=== PATIENT | female | born 1990 | race African-American/Black ===

== ENCOUNTER 2016-10-23 22:47 | Emergency (ER) | payer OTHER | END 2016-10-23 22:57 | disposition home or self-care (01) | LOC: ER 22:47 | DX: S09.90XA Unspecified injury of head, initial encounter (principal); S50.02XA Contusion of left elbow, initial encounter; S50.11XA Contusion of right forearm, initial encounter; V29.20XA Unspecified motorcycle rider injured in collision with unspecified motor vehicles in nontraffic accident, initial encounter | CPT/HCPCS: 70450; 73080-LT; 73090-RT; 99284; A9270-GY ==